=== PATIENT | female | born 2000 | race Two or more races ===

== ENCOUNTER 2020-07-23 15:27 | Emergency (ER) | payer BC ==
[~2020-07-23] VITALS: Ht 149.9 cm; Wt 84.5 kg
[2020-07-23] MEDS ORDERED: AMPICILLIN SODIUM/SULBACTAM NA 3 GM in SODIUM CHLORIDE 0.9% 100 ML IV ONE (19:00)
[2020-07-23] MEDS ORDERED: SODIUM CHLORIDE 0.9% 1,000 ML IV ONE (19:15)
[2020-07-23] MEDS ORDERED: KETOROLAC TROMETHAMINE 30 MG/ML VIAL IVP ONE (19:15)
[2020-07-23 19:42] LABS: BASOPHILS % (AUTO) 0.2 % (0.0-2.0); EOSINOPHILS % (AUTO) 0.2 % (1.0-6.0); HEMATOCRIT 40.9 % (36-46); HEMOGLOBIN 14.1 g/dL (12.0-16.0); LYMPHOCYTES # (AUTO) 1.9 K/uL (1.0-4.8); LYMPHOCYTES % (AUTO) 11.6 % (22.0-44.0); MEAN CORPUSCULAR HEMOGLOBIN 29.2 pg (26.0-34.0); MEAN CORPUSCULAR HGB CONC 34.4 G/dL (31.0-37.0); MEAN CORPUSCULAR VOLUME 85 fL (80-100); MONOCYTES # (AUTO) 0.9 K/uL (0.1-1.0); MONOCYTES % (AUTO) 5.3 % (2.0-9.0); NEUTROPHILS # (AUTO) 13.3 K/uL (1.8-7.7); NEUTROPHILS % (AUTO) 82.7 % (40.0-70.0); PLATELET COUNT (AUTO) 345 K/uL (150-450); RED BLOOD CELL COUNT(AUTO) 4.82 MIL/uL (4.00-5.20); RED CELL DISTRIBUTION WIDTH 14.3 % (11.5-14.5)
[2020-07-23 20:14] LABS: ANION GAP 8 mmol/L (8-16); CALCIUM, TOTAL 9.8 mg/dL (8.8-10.5); CARBON DIOXIDE 27 mmol/L (22-29); CHLORIDE 100 mmol/L (98-107); CREATININE 0.83 mg/dL (0.60-1.30); GLOMERULAR FILTR. RATE CALC > 60 mL/min (>60); GLUCOSE,RANDOM 114 mg/dL (70-110); POTASSIUM 3.9 mmol/L (3.5-5.1); SODIUM SERUM 135 mmol/L (136-145); UREA NITROGEN, BLOOD 6 mg/dL (7-18)
[2020-07-23 20:25] LABS: ALANINE AMINOTRANSFERASE 21 U/L (12-78); ALKALINE PHOSPHATASE 79 U/L (46-116); ASPARTATE AMINOTRANSFERASE 16 U/L (15-37); BILIRUBIN,TOTAL 0.6 mg/dL (0.1-1.0); HCG,QUANTITATIVE 1 mIU/mL (0-6); TOTAL PROTEIN, SERUM 9.8 g/dL (6.4-8.2)
[2020-07-23] MEDS ORDERED: SODIUM CHLORIDE 0.9% 100 ML ONE (20:31)
[2020-07-23] MEDS ORDERED: IOVERSOL 350 MG/ML 100 ML VIAL ONE (20:31)
[2020-07-23 22:25] VITALS: BP 125/76
== END 2020-07-23 22:52 | disposition home or self-care (01) ==
LOC: EMS 15:27
DX: K05.319 Chronic periodontitis, localized, unspecified severity (principal)
CPT/HCPCS: 36415; 70460; 70487; 80053; 83605; 84702; 85025; 87040; 96365; 96366; 96375; 99285; J0295; J1885; J7030; J7050; Q9967

== ENCOUNTER 2023-12-01 18:04 | Emergency (ER) | payer BC ==
[~2023-12-01] VITALS: Ht 149.9 cm; Wt 86.4 kg
[2023-12-01 18:23] VITALS: BP 128/87; PULSE 85; RESP 14; TEMP 98.6
[2023-12-01] MEDS ORDERED: ACETAMINOPHEN 325 MG TABLET ONE (19:36)
[2023-12-01] MEDS: ACETAMINOPHEN 325 MG TABLET PO ONE (19:41)
== END 2023-12-01 20:01 | disposition home or self-care (01) ==
LOC: EMS 18:04
DX: S83.8X2A Sprain of other specified parts of left knee, initial encounter (principal); X50.1XXA Overexertion from prolonged static or awkward postures, initial encounter; Y93.89 Activity, other specified; Y92.89 Other specified places as the place of occurrence of the external cause; Y99.8 Other external cause status
CPT/HCPCS: 29505; 99283